=== PATIENT | female | born 1990 | race African-American/Black ===

== ENCOUNTER 2017-03-12 06:26 | Emergency (ER) | payer MEDICAID ==
[~2017-03-12 06:26] MED LIST: AUGM875T PO; IBUP-232 PO; METR-1 PO; PERI0.126 SWISH-SPIT
[2017-03-12 08:10] LABS: BACTERIA, URINE MOD /hpf; BLOOD, URINE NEG (NEG); GLUCOSE,URINE NEG (NEG); HYALINE CAST, URINE 2 /lpf (RARE); KETONE, URINE NEG (NEG); MUCUS URINE MANY /lpf (OCC); NITRITE,URINE NEG (NEG); PH, URINE 6.5 (5.0-8.5); SQUAMOUS EPITHELIAL CELL URINE 14 /hpf (0-5); TRANSITIONAL EPI CELLS, URINE <1 /hpf; URINE COLOR YELLOW (YELLW/STRAW)
[2017-03-12 08:11] LABS: COMMENT (UR) CULTURE INDICATED; CULTURE IF INDICATED CULTURE INDICATED
--- NOTE | 2017-03-12 08:53 | PD ---
HPI Chief Complaint abdominal pain Date Seen: March 12, 2017 Time Seen: 07:10 (Tray Batista MD R1) Travel History International Travel<30 Days: No Contact w/Intl Traveler<30Days: No Known Affected Area: No (Tray Batista MD R1) History of Present Illness HPI Patient is a 26-year-old at 17 weeks and 0 days with monochorionic diamniotic twin gestation who presents with abdominal pain and pressure. Patient 's estimated date of delivery is 08/20/17 based on first trimester ultrasound. Patient reports that she's been feeling abdominal pain ever since last Sunday, a week ago. The pain is so bad at work this morning, but she decided to come in to be seen. Patient reports that this morning, she felt her "stomach drop", she also feels bilateral lower abdominal pain, with pain in her privates, in her back, and her sides, bilaterally. She describes the pain as a 4 out of 10 crampy pain associated with 10 out of 10 pressure. She denies any leakage of fluid or vaginal bleeding. She reports first feeling movement about 2-3 weeks ago, last time she felt movement was about a week and half ago. Her last doctor's visit was on 03/01, which showed a reassuring ultrasound. She endorses nausea and vomiting about 3-4 times per day. She reports that she' s tried to clean edges, which works but her insurance will cover. She has tried Zofran, but it constipates her so she doesn't want to take it. She was just prescribed Reglan, but has not had a chance to try. She does endorse some shortness of breath associated with some orthostatic tachycardia. She had a recent rash on her chest. She is endorsing fever and chills. She also endorses some a little bit of swelling in her feet. She denies any headache or chest pain or pain under her ribs or dysuria. Para: 1 : 2 (Tray Batista MD R1) History Past Medical History Medical History: Denies Significant Hx (Tray Batista MD R1) Obstetric History Obstetric History Patient reports that her first was uncomplicated, full-term vaginal delivery. (Tray aBtista MD R1) Past Surgical History Surgical History: No Previous Surgery (Tray Batista MD R1) Family History Narrative Family History Patient reports a history of hypertension in her mother and a family history of diabetes. (Tray Batista MD R1) Social History Alcohol Use: No Tobacco Use: No Substance Abuse: No (Tray Batista MD R1) Allergies-Medications (Allergen,Severity, Reaction): Coded Allergies: No Known Allergies (Verified , 10/04/16) Home Meds Active Scripts Nitrofurantoin Monohydrate Macrocrystals (Macrobid)100 Mg [id number] Mg PO BID #14 CAP Ref 0 Prov:Tray Batista MD R1 03/12/17 Ibuprofen 600 Mg Zys102 Mg PO Q8HR PRN (PAIN) #12 TAB Ref 0 Prov:Kalpana Clemente MD 10/04/16 Chlorhexidine Gluconate (Mouth) Liq (Peridex Liq)0.12% Soln15 Ml SWISH-SPIT BID #473 ML Ref 0 Prov:Kalpana Clemente MD 10/04/16 Amoxicillin-Clavulanate (Augmentin)875-125 mg Odw468 Mg PO BID 7 Days Ref 0 not for use in CrCl <30 ml/min. Prov:Kalpana Clemente MD 10/04/16 Reported Medications Metronidazole (Flagyl)500 Mg Xgx496 Mg PO TID Ref 0 10/04/16 Review of Systems General / Constitutional: Fever, Chills Eyes: No: Blurred Vision, Visual changes HENT: No: Headaches Cardiovascular: Tachycardia (associated with orthostasis), No: Chest Pain or Discomfort Respiratory: Short of Breath (associated with orthostasis) Gastrointestinal: Nausea, Vomiting (3-4 times a day), Abdominal Pain Genitourinary: No: Dysuria Musculoskeletal: Edema (little bit in feet) Skin: No Rash (Tray Batista MD R1) Physical Exam Vital signs noted to be within normal limits. Narrative GENERAL: Well-nourished, well-developed patient. SKIN: Warm and dry. HEAD: Normocephalic and atraumatic. EYES: No scleral icterus. No injection or drainage. ENT: No nasal drainage noted. Mucous membranes pink. Airway patent. NECK: Supple, trachea midline. No JVD. CARDIOVASCULAR: Regular rate and rhythm without murmurs, gallops, or rubs. RESPIRATORY: Breath sounds equal bilaterally. No accessory muscle use. ABDOMEN/GI: Abdomen soft, non-tender, bowel sounds present, no rebound, no guarding Gravid to 20 weeks size GENITOURINARY: External Genitalia: intact and normal in appearance Cervix: Closed Membranes: [intact] EXTREMITIES: No cyanosis or edema. BACK: Nontender without obvious deformity. No CVA tenderness. NEUROLOGICAL: Awake and alert. Motor and sensory grossly within normal limits. Five out of 5 muscle strength in all muscle groups. Normal speech. (Tray Batista MD R1) Data Data Vital Signs Reviewed: Yes Orders Urinalysis - C+S If Indicated (03/12/17 07:42) Vital Signs (Adult) .ON ADMISSION (03/12/17 07:42) ^ Hydration (03/12/17 07:42) Urine Culture (03/12/17 06:45) Labs Laboratory Tests Test 03/12/17 06:45 Urine Color YELLOW Urine Turbidity HAZY Urine pH 6.5 Urine Specific [place] 1.029 Urine Protein 30 Urine Glucose (UA) NEG Urine Ketones NEG Urine Occult Blood NEG Urine Nitrite NEG Urine Bilirubin NEG Urine Urobilinogen 2.0 Urine Leukocyte Esterase MOD Urine RBC 2 Urine WBC 4 Urine Squamous Epithelial 14 Cells Urine Transitional Epithelial <1 Cells Urine Bacteria MOD Urine Hyaline Casts 2 Urine Mucus MANY Microscopic Urinalysis Comment CULTURE INDICATED Date/Time Procedure Status Source Growth 03/12/17 06:45 Urine Culture Received Urine Clean Catch Pending (Tray Batista MD R1) MDM Plan Patient is a 26-year-old at 17 weeks and 0 days with monochorionic diamniotic twin gestation who presents with abdominal pain and pressure. 1. abdominal pain - UTI vs. round ligament pain UA found to have moderate leukocyte esterase, moderate bacteria, many urine mucus, culture indicated. Plan to treat with Macrobid 100 mg by mouth twice a day for 7 days. Will follow urine culture and call patient if antibiotic change is needed. Monitor vital signs Encourage by mouth hydration (Tray Batista MD R1) Diagnosis Diagnosis: Primary Impression: UTI (lower urinary tract infection) Additional Impression: Abdominal pain Disposition: 01 DISCHARGE HOME Condition: Good Scripts Nitrofurantoin Monohydrate Macrocrystals (Macrobid)100 Mg [id number] Mg PO BID #14 CAP Ref 0 Prov:Tray Batista MD R1 03/12/17 Collaborating MD Comments Agree with care and management (Brenda Faulkner MD) Tray Batista MD R1 March 12, 2017 08:53 Brenda Faulkner MD March 12, 2017 09:28
[2017-03-12] MEDS ORDERED: MACR100C2 PO (08:56)
== END 2017-03-12 09:01 | disposition home or self-care (01) ==
LOC: HOBED 06:31
DX: O23.42 Unspecified infection of urinary tract in pregnancy, second trimester (principal); O30.032 Twin pregnancy, monochorionic/diamniotic, second trimester; R10.9 Unspecified abdominal pain; Z3A.17 17 weeks gestation of pregnancy
CPT/HCPCS: 81001; 87086; 99282

== ENCOUNTER → 2017-04-04 | Outpatient (CLI) | payer MEDICAID ==
[~2017-04-04] MED LIST changes: +MACR100C2 PO
== END ==
LOC: HPND 07:33
PROVIDERS: ATTEND Obstetrics & Gynecology
DX: O30.032 Twin pregnancy, monochorionic/diamniotic, second trimester (principal)
CPT/HCPCS: 76815; 76817

== ENCOUNTER → 2017-04-18 | Outpatient (CLI) | payer MEDICAID, OTHER | LOC: HPND 07:55 | PROVIDERS: ATTEND Obstetrics & Gynecology | DX: O30.032 Twin pregnancy, monochorionic/diamniotic, second trimester (principal); Z3A.22 22 weeks gestation of pregnancy | CPT/HCPCS: 76816; 76825; 76827; 93325 ==